=== PATIENT | male | born 1945 | race Caucasian/White ===

== ENCOUNTER 2020-02-16 14:30 | Inpatient (IN) ==
[2020-02-16] MEDS ORDERED: SODIUM CHLORIDE 0.9% 1,000 ML IV STA (14:47)
[2020-02-16] MEDS ORDERED: dilTIAZem Drip 125 MG/125 ML PREMIX IV ONE (14:50)
[2020-02-16] MEDS ORDERED: DILTIAZEM 50 MG/10 ML VIAL IV STA (14:52)
[2020-02-16 15:49] LABS: Basophils % 0.4 % (0.0-0.8); Eosinophils # 0.2 10*3/uL (0.0-0.87); Hematocrit 36.6 VOL% (42.0-52.0); Hemoglobin 11.2 GM/DL (14.0-18.0); Immature Granulocytes % 0.5 %; Immature Granulocytes Absolute 0.04 #; Lymphocytes # 0.9 10*3/uL (1.4-4.0); Lymphocytes % 11.5 % (21.2-54.2); Mean Corpuscular HGB Conc 30.6 GM/DL (32-36); Mean Corpuscular Volume 91.7 FL (87-102); Monocytes % 11.5 % (1.7-12.7); Neutrophils % 74.1 % (38.7-73.9); Platelet Count 151 T/CUMM (130-400); Red Blood Count 3.99 MC/CUMM (3.8-5.5); Red Cell Distribution Width 14.6 % (9.3-17.3); White Blood Count 7.4 T/CUMM (4-12)
[2020-02-16 15:59] LABS: INR 1.7
[2020-02-16 16:13] LABS: Albumin 2.9 G/DL (3.4-5.0); Bilirubin,Total 0.8 MG/DL (0.2-1.0); Calcium 8.4 MG/DL (8.5-10.1); Osmolality,Calculated 293.5 MOS/KG (273-304); Total Protein 7.5 G/DL (6.4-8.3)
[2020-02-16 16:37] LABS: Apearance,Urine Slightly Hazy (Clear); Bacteria,Urine Occasional /HPF (Few); Bilirubin,Urine Negative (Negative); Blood, Urine Small mg/dL (Negative); Glucose,Urine (UA) Negative (Negative); Hyaline Casts,Urine 3 /LPF (0-3); Ketones,Urine 5 mg/dL (Negative); Mucus,Urine Occasional /LPF (Occasional); Nitrite,Urine Negative (Negative); Protein,Urine Negative; RBC,Urine 2 /HPF (0-4); Squamous Epithelial Cell,Urine Occasional /HPF (0-10); Urine Specific Gravity 1.019 (1.001-1.035); WBC,Urine 5 /HPF (0-6)
[2020-02-16 16:38] LABS: Urine Color Yellow (Yellow)
[2020-02-16] MEDS ORDERED: GLUCAGON 1 MG VIAL IM PRN (16:52)
[2020-02-16] MEDS ORDERED: ACETAMINOPHEN 325 MG TABLET PO PRN (16:52)
[2020-02-16] MEDS ORDERED: ONDANSETRON 4 MG/2 ML VIAL IV PRN (16:52)
[2020-02-16] MEDS ORDERED: DEXTROSE 10% 250 ML BAG IV PRN (16:52)
[2020-02-16] MEDS ORDERED: LORazepam 2 MG/1 ML VIAL IV STA (17:30)
[2020-02-16] MEDS ORDERED: SODIUM CHLORIDE 0.9% 1,000 ML IV SCH (18:00)
[2020-02-16] MEDS: dilTIAZem Drip 125 MG/125 ML PREMIX IV SCH (18:31)
[2020-02-16] MEDS: INSULIN LISPRO 100 UNIT/ML SUBCUT SCH (21:21)
[2020-02-16] MEDS: ZIPRASIDONE 20 MG/1 ML VIAL IM PRN (21:56)
[2020-02-17] MEDS: dilTIAZem Drip 125 MG/125 ML PREMIX IV SCH ×2 (04:10→22:16)
[2020-02-17] MEDS: ZIPRASIDONE 20 MG/1 ML VIAL IM PRN (04:46)
[2020-02-17 04:48] LABS: Basophils % 0.3 % (0.0-0.8); Eosinophils # 0.3 10*3/uL (0.0-0.87); Eosinophils % 3.9 % (0.00-10.9); Hematocrit 35.5 VOL% (42.0-52.0); Hemoglobin 11.2 GM/DL (14.0-18.0); Immature Granulocytes % 0.6 %; Immature Granulocytes Absolute 0.04 #; Lymphocytes # 1.1 10*3/uL (1.4-4.0); Lymphocytes % 14.7 % (21.2-54.2); Mean Corpuscular HGB Conc 31.5 GM/DL (32-36); Mean Corpuscular Volume 90.3 FL (87-102); Mean Platelet Volume 11.5 FL (9.6-12.0); Monocytes % 11.3 % (1.7-12.7); Neutrophils % 69.2 % (38.7-73.9); Platelet Count 167 T/CUMM (130-400); Red Blood Count 3.93 MC/CUMM (3.8-5.5); Red Cell Distribution Width 14.5 % (9.3-17.3); White Blood Count 7.2 T/CUMM (4-12)
[2020-02-17 05:02] LABS: Albumin 2.9 G/DL (3.4-5.0); Bilirubin,Total 1.1 MG/DL (0.2-1.0); Calcium 8.2 MG/DL (8.5-10.1); Osmolality,Calculated 291.4 MOS/KG (273-304); Total Protein 6.8 G/DL (6.4-8.3)
[2020-02-17] MEDS: ATORVASTATIN 40 MG TABLET PO SCH ×2 (07:22→17:46)
[2020-02-17] MEDS ORDERED: AMIODARONE INJ 150 MG in DEXTROSE 5% 100 ML IV ONE (09:30)
[2020-02-17] MEDS ORDERED: AMIODARONE INJ 450 MG in DEXTROSE 5% 241 ML IV SCH ×2 (09:40→15:40)
[2020-02-17] MEDS: INSULIN LISPRO 100 UNIT/ML SUBCUT SCH ×4 (09:52→22:15)
[2020-02-17] MEDS: PANTOPRAZOLE 40 MG TABLET PO SCH (09:53)
[2020-02-17] MEDS: FUROSEMIDE 40 MG TABLET PO SCH (09:53)
[2020-02-17] MEDS: RIVAROXABAN 15 MG TABLET PO SCH (09:53)
[2020-02-17] MEDS: POTASSIUM CHLORIDE 20 MEQ TABLET PO SCH (09:53)
[2020-02-17] MEDS ORDERED: SKIN HEALING OINT (AQUAPHOR) 50 GM TUBE TOP PRN (11:38)
[2020-02-17] MEDS ORDERED: ZIPRASIDONE 20 MG/1 ML VIAL IM ONE ×2 (15:44→21:54)
[2020-02-17] MEDS ORDERED: TUBERCULIN SKIN TEST 0.1 ML SYRINGE INTRADERM ONE (15:53)
[2020-02-18 05:52] LABS: Basophils % 0.2 % (0.0-0.8); Eosinophils # 0.1 10*3/uL (0.0-0.87); Eosinophils % 1.7 % (0.00-10.9); Hematocrit 35.6 VOL% (42.0-52.0); Hemoglobin 11.2 GM/DL (14.0-18.0); Immature Granulocytes % 0.6 %; Immature Granulocytes Absolute 0.05 #; Lymphocytes # 0.9 10*3/uL (1.4-4.0); Lymphocytes % 10.9 % (21.2-54.2); Mean Corpuscular HGB Conc 31.5 GM/DL (32-36); Mean Corpuscular Volume 90.6 FL (87-102); Mean Platelet Volume 11.2 FL (9.6-12.0); Monocytes % 10.2 % (1.7-12.7); Neutrophils % 76.4 % (38.7-73.9); Platelet Count 176 T/CUMM (130-400); Red Blood Count 3.93 MC/CUMM (3.8-5.5); Red Cell Distribution Width 14.6 % (9.3-17.3); White Blood Count 8.4 T/CUMM (4-12)
[2020-02-18 06:01] LABS: Albumin 2.7 G/DL (3.4-5.0); Bilirubin,Total 1.1 MG/DL (0.2-1.0); Calcium 8.3 MG/DL (8.5-10.1); Osmolality,Calculated 286.5 MOS/KG (273-304); Total Protein 7.2 G/DL (6.4-8.3)
[2020-02-18] MEDS: RIVAROXABAN 15 MG TABLET PO SCH (09:27)
[2020-02-18] MEDS: FUROSEMIDE 40 MG TABLET PO SCH (09:27)
[2020-02-18] MEDS: PANTOPRAZOLE 40 MG TABLET PO SCH (09:27)
[2020-02-18] MEDS: POTASSIUM CHLORIDE 20 MEQ TABLET PO SCH (09:27)
[2020-02-18] MEDS: DILTIAZEM 60 MG TABLET PO SCH ×2 (09:27→14:48)
[2020-02-18] MEDS: INSULIN LISPRO 100 UNIT/ML SUBCUT SCH ×3 (09:30→17:46)
[2020-02-18] MEDS: QUEtiapine 100 MG TABLET PO SCH (14:28)
[2020-02-18] MEDS: dilTIAZem Drip 125 MG/125 ML PREMIX IV SCH (15:22)
[2020-02-18] MEDS: ATORVASTATIN 40 MG TABLET PO SCH (18:16)
[2020-02-19] MEDS: INSULIN LISPRO 100 UNIT/ML SUBCUT SCH ×5 (00:52→21:16)
[2020-02-19] MEDS: DILTIAZEM 60 MG TABLET PO SCH ×3 (00:52→09:10)
[2020-02-19] MEDS: QUEtiapine 100 MG TABLET PO SCH ×3 (00:53→21:09)
[2020-02-19] MEDS: MEMANTINE 10 MG TABLET PO SCH ×2 (00:53→21:09)
[2020-02-19] MEDS: dilTIAZem Drip 125 MG/125 ML PREMIX IV SCH (02:02)
[2020-02-19 06:11] LABS: Basophils % 0.4 % (0.0-0.8); Eosinophils # 0.2 10*3/uL (0.0-0.87); Eosinophils % 2.8 % (0.00-10.9); Hematocrit 32.5 VOL% (42.0-52.0); Hemoglobin 10.1 GM/DL (14.0-18.0); Immature Granulocytes % 0.5 %; Immature Granulocytes Absolute 0.04 #; Lymphocytes # 0.8 10*3/uL (1.4-4.0); Lymphocytes % 11.1 % (21.2-54.2); Mean Corpuscular HGB Conc 31.1 GM/DL (32-36); Mean Corpuscular Volume 91.3 FL (87-102); Mean Platelet Volume 11.1 FL (9.6-12.0); Monocytes % 9.5 % (1.7-12.7); Neutrophils % 75.7 % (38.7-73.9); Platelet Count 176 T/CUMM (130-400); Red Blood Count 3.56 MC/CUMM (3.8-5.5); Red Cell Distribution Width 14.9 % (9.3-17.3); White Blood Count 7.6 T/CUMM (4-12)
[2020-02-19 06:35] LABS: Albumin 2.7 G/DL (3.4-5.0); Bilirubin,Total 1.9 MG/DL (0.2-1.0); Calcium 8.4 MG/DL (8.5-10.1); Osmolality,Calculated 284.7 MOS/KG (273-304); Total Protein 6.9 G/DL (6.4-8.3)
[2020-02-19] MEDS ORDERED: DILTIAZEM 30 MG TABLET PO ONE (09:01)
[2020-02-19] MEDS: FUROSEMIDE 40 MG TABLET PO SCH (09:44)
[2020-02-19] MEDS: QUEtiapine 25 MG TABLET PO SCH (09:44)
[2020-02-19] MEDS: PANTOPRAZOLE 40 MG TABLET PO SCH (09:44)
[2020-02-19] MEDS: RIVAROXABAN 15 MG TABLET PO SCH (09:44)
[2020-02-19] MEDS: POTASSIUM CHLORIDE 20 MEQ TABLET PO SCH (09:44)
[2020-02-19] MEDS: DILTIAZEM 90 MG TABLET PO SCH ×2 (15:14→21:15)
[2020-02-19] MEDS: ATORVASTATIN 40 MG TABLET PO SCH (17:28)
[2020-02-20 03:40] LABS: Basophils % 0.3 % (0.0-0.8); Eosinophils # 0.2 10*3/uL (0.0-0.87); Eosinophils % 1.2 % (0.00-10.9); Hematocrit 33.8 VOL% (42.0-52.0); Hemoglobin 10.5 GM/DL (14.0-18.0); Immature Granulocytes % 0.6 %; Immature Granulocytes Absolute 0.08 #; Lymphocytes # 0.8 10*3/uL (1.4-4.0); Mean Corpuscular HGB Conc 31.1 GM/DL (32-36); Mean Corpuscular Volume 90.6 FL (87-102); Mean Platelet Volume 10.9 FL (9.6-12.0); Monocytes % 7.9 % (1.7-12.7); Platelet Count 194 T/CUMM (130-400); Red Blood Count 3.73 MC/CUMM (3.8-5.5)
[2020-02-20 04:02] LABS: Calcium 8.5 MG/DL (8.5-10.1); Osmolality,Calculated 276.2 MOS/KG (273-304)
[2020-02-20] MEDS: INSULIN LISPRO 100 UNIT/ML SUBCUT SCH ×4 (09:36→20:24)
[2020-02-20] MEDS: dilTIAZem Drip 125 MG/125 ML PREMIX IV SCH (10:44)
[2020-02-20] MEDS: POTASSIUM CHLORIDE 20 MEQ TABLET PO SCH (12:18)
[2020-02-20] MEDS: DILTIAZEM 90 MG TABLET PO SCH ×3 (12:18→20:27)
[2020-02-20] MEDS: FUROSEMIDE 40 MG TABLET PO SCH (12:19)
[2020-02-20] MEDS: PANTOPRAZOLE 40 MG TABLET PO SCH (12:19)
[2020-02-20] MEDS: RIVAROXABAN 15 MG TABLET PO SCH (12:19)
[2020-02-20] MEDS: QUEtiapine 100 MG TABLET PO SCH ×2 (12:19→20:27)
[2020-02-20] MEDS: QUEtiapine 25 MG TABLET PO SCH (12:19)
[2020-02-20] MEDS: ATORVASTATIN 40 MG TABLET PO SCH ×2 (14:56→17:04)
[2020-02-20] MEDS: MEMANTINE 10 MG TABLET PO SCH (20:28)
[2020-02-21 05:37] LABS: Basophils % 0.4 % (0.0-0.8); Eosinophils # 0.2 10*3/uL (0.0-0.87); Eosinophils % 2.1 % (0.00-10.9); Hematocrit 31.7 VOL% (42.0-52.0); Hemoglobin 10.2 GM/DL (14.0-18.0); Immature Granulocytes % 0.4 %; Immature Granulocytes Absolute 0.04 #; Mean Corpuscular HGB Conc 32.2 GM/DL (32-36); Mean Corpuscular Volume 88.8 FL (87-102); Neutrophils % 76.1 % (38.7-73.9); Platelet Count 190 T/CUMM (130-400); Red Blood Count 3.57 MC/CUMM (3.8-5.5); Red Cell Distribution Width 15.3 % (9.3-17.3); White Blood Count 9.2 T/CUMM (4-12)
[2020-02-21 05:58] LABS: Calcium 8.3 MG/DL (8.5-10.1); Osmolality,Calculated 274.2 MOS/KG (273-304)
[2020-02-21] MEDS: POTASSIUM CHLORIDE 20 MEQ TABLET PO SCH (08:22)
[2020-02-21] MEDS: PANTOPRAZOLE 40 MG TABLET PO SCH (08:22)
[2020-02-21] MEDS: QUEtiapine 25 MG TABLET PO SCH (08:22)
[2020-02-21] MEDS: QUEtiapine 100 MG TABLET PO SCH ×2 (08:22→21:11)
[2020-02-21] MEDS: DILTIAZEM 90 MG TABLET PO SCH ×3 (08:22→21:11)
[2020-02-21] MEDS: RIVAROXABAN 15 MG TABLET PO SCH (08:23)
[2020-02-21] MEDS: FUROSEMIDE 40 MG TABLET PO SCH (08:23)
[2020-02-21] MEDS: INSULIN LISPRO 100 UNIT/ML SUBCUT SCH ×4 (08:25→21:11)
[2020-02-21] MEDS: dilTIAZem Drip 125 MG/125 ML PREMIX IV SCH (10:59)
[2020-02-21] MEDS: DIGOXIN 0.25 MG TABLET PO SCH (15:55)
[2020-02-21] MEDS: ATORVASTATIN 40 MG TABLET PO SCH (18:09)
[2020-02-21 18:26] LABS: Barbiturates Screen,Urine Negative (Negative); Benzodiazepines Screen,Urine Negative (Negative); Cannabinoid Screen,Urine Negative (Negative); Opiate Screen,Urine Negative (Negative); Phencyclidine Screen,Urine Negative (Negative)
[2020-02-21] MEDS: MEMANTINE 10 MG TABLET PO SCH (21:11)
[2020-02-22] MEDS: INSULIN LISPRO 100 UNIT/ML SUBCUT SCH ×4 (08:31→21:57)
[2020-02-22] MEDS: DILTIAZEM 90 MG TABLET PO SCH ×3 (08:32→21:56)
[2020-02-22] MEDS: FUROSEMIDE 40 MG TABLET PO SCH (08:33)
[2020-02-22] MEDS: PANTOPRAZOLE 40 MG TABLET PO SCH (08:33)
[2020-02-22] MEDS: TAMSULOSIN 0.4 MG CAPSULE PO SCH (08:33)
[2020-02-22] MEDS: QUEtiapine 100 MG TABLET PO SCH ×2 (08:33→21:56)
[2020-02-22] MEDS: QUEtiapine 25 MG TABLET PO SCH (08:33)
[2020-02-22] MEDS: POTASSIUM CHLORIDE 20 MEQ TABLET PO SCH (08:33)
[2020-02-22] MEDS: RIVAROXABAN 15 MG TABLET PO SCH (08:33)
[2020-02-22] MEDS: DIGOXIN 0.25 MG TABLET PO SCH (13:20)
[2020-02-22] MEDS: ATORVASTATIN 40 MG TABLET PO SCH (17:10)
[2020-02-22] MEDS: MEMANTINE 10 MG TABLET PO SCH (21:56)
[2020-02-23 07:59] LABS: Basophils % 0.5 % (0.0-0.8); Eosinophils # 0.2 10*3/uL (0.0-0.87); Eosinophils % 2.3 % (0.00-10.9); Hematocrit 35.5 VOL% (42.0-52.0); Hemoglobin 11.6 GM/DL (14.0-18.0); Immature Granulocytes % 0.7 %; Immature Granulocytes Absolute 0.06 #; Mean Corpuscular HGB Conc 32.7 GM/DL (32-36); Mean Corpuscular Volume 87.7 FL (87-102); Monocytes % 11.9 % (1.7-12.7); Neutrophils % 72.6 % (38.7-73.9); Platelet Count 249 T/CUMM (130-400); Red Blood Count 4.05 MC/CUMM (3.8-5.5); Red Cell Distribution Width 15.9 % (9.3-17.3); White Blood Count 8.1 T/CUMM (4-12)
[2020-02-23 08:19] LABS: Calcium 8.3 MG/DL (8.5-10.1); Osmolality,Calculated 272.1 MOS/KG (273-304)
[2020-02-23] MEDS: RIVAROXABAN 15 MG TABLET PO SCH (10:03)
[2020-02-23] MEDS: DILTIAZEM 60 MG TABLET PO SCH ×4 (10:04→21:06)
[2020-02-23] MEDS: QUEtiapine 25 MG TABLET PO SCH (10:05)
[2020-02-23] MEDS: QUEtiapine 100 MG TABLET PO SCH ×2 (10:06→21:07)
[2020-02-23] MEDS: PANTOPRAZOLE 40 MG TABLET PO SCH (10:07)
[2020-02-23] MEDS: FUROSEMIDE 40 MG TABLET PO SCH (10:07)
[2020-02-23] MEDS: TAMSULOSIN 0.4 MG CAPSULE PO SCH (10:08)
[2020-02-23] MEDS: POTASSIUM CHLORIDE 20 MEQ TABLET PO SCH (10:08)
[2020-02-23] MEDS: INSULIN LISPRO 100 UNIT/ML SUBCUT SCH ×4 (10:09→21:06)
[2020-02-23] MEDS: DIGOXIN 0.25 MG TABLET PO SCH (15:47)
[2020-02-23] MEDS: ATORVASTATIN 40 MG TABLET PO SCH (18:55)
[2020-02-23] MEDS: MEMANTINE 10 MG TABLET PO SCH (21:07)
[2020-02-24 03:10] VITALS: BP 122/59
[2020-02-24] MEDS ORDERED: DIGOXIN 0.125 MG TABLET PO SCH (13:00)
== END 2020-02-24 07:27 | DRG 682 ==
LOC: N.ED 14:30 → N.EDINP 16:51 → SUATTDRO 16:51 → N.TELEN 17:23
PROVIDERS: ADMIT Family Medicine; ATTEND Internal Medicine